=== PATIENT | male | born 1935 | race Caucasian/White ===

== ENCOUNTER → 2018-12-22 | Outpatient (CLI) | payer MEDICARE, OTHER ==
--- NOTE | 2018-12-22 14:37 | PCVCIMAG ---
APPROVED REPORT Study performed: 12/22/2018 12:58:06 EXAM: Comprehensive 2D, Doppler, and color-flow Echocardiogram Patient Location: Echo lab Status: routine BSA: 1.92 HR: 61 bpmBP: 140/70 mmHg Rhythm: NSR Other Information Study Quality: Good Indications Murmur Pre-op Clearance 2D Dimensions IVSd: 13.12 (7-11mm) LVDd: 46.67 mm PWd: 10.68 (7-11mm)Ascending Ao: 30.79 (22-36mm) LVDs: 33.84 (25-40mm) Left Atrium: 42.02 (27-40mm) Aortic Root: 28.41 mm LV Single Plane 4CH: 56.79 % LV Single Plane 2CH: 61.22 % Biplane EF: 58.0 % Volumes Left Atrial Volume (Systole) Single Plane 4CH: 71.12 mLSingle Plane 2CH: 59.38 mL LA ESV Index: 36.00 mL/m2 Mitral Valve E/A Ratio: 1.2 MV Decel. Time: 99.87 ms MV E Max Brijesh.: 0.65 m/s MV A Brijesh.: 0.56 m/s IVRT: 124.57 ms TDI E/Lateral E': 9.29E/Medial E': 9.29 Medial E' Brijesh.: 0.07 m/s Lateral E' Brijesh.: 0.07 m/s Pulmonary Valve PV Peak Gr.: 2.03 mmHg Tricuspid Valve TR Peak Brijesh.: 3.05 m/s TR Peak Gr.: 37.25 mmHg Left Ventricle The left ventricle is normal size. There is normal LV segmental wall motion. There is normal left ventricular wall thickness. Left ventricular systolic function is normal. The left ventricular ejection fraction is within the normal range. LVEF is 55-60%. The left ventricular diastolic function is normal. Right Ventricle The right ventricle is normal size. The right ventricular systolic function is normal. Atria Left atrium is mildly dilated. The right atrium size is normal. Aortic Valve The aortic valve is mildly sclerotic. Trace aortic regurgitation. There is no aortic valvular stenosis. Mitral Valve Mitral valve leaflets are mildly thickened, predominantly anterior leaflet. Mitral Valve Prolapse. Mild to moderate mitral regurgitation No evidence of mitral valve stenosis. Tricuspid Valve The tricuspid valve is normal in structure. Trace tricuspid regurgitation. Pulmonary artery pressure is 34mmHg. Pulmonic Valve The pulmonary valve is normal in structure. There is no pulmonic valvular regurgitation. Great Vessels The aortic root is normal in size. IVC is normal in size and collapses >50% with inspiration. Pericardium There is no pericardial effusion. <Conclusion> Left ventricular systolic function is normal. There is normal LV segmental wall motion. LVEF 55-60%. Left atrium is mildly dilated. The aortic valve is mildly sclerotic. Trace aortic regurgitation, no stenosis. Mitral valve leaflets are mildly thickened, predominantly anterior leaflet, mild prolapse. Mild to moderate mitral regurgitation Trace tricuspid regurgitation. Pulmonary artery pressure is 34mmHg. There is no pericardial effusion.
== END | disposition home or self-care (01) ==
LOC: PCVCIMAG 12:54
PROVIDERS: ATTEND Internal Medicine
DX: Z01.818 Encounter for other preprocedural examination (principal); I34.0 Nonrheumatic mitral (valve) insufficiency; R01.1 Cardiac murmur, unspecified
CPT/HCPCS: 93306